=== PATIENT | female | born 1990 | race Caucasian/White ===

== ENCOUNTER 2022-03-16 08:30 | Day surgery (SDC) | payer OTHER ==
[~2022-03-16] VITALS: Ht 154.9 cm; Wt 65.4 kg
[2022-03-16] MEDS ORDERED: Budeprion Xl300 MG PO (09:04)
[2022-03-16] MEDS ORDERED: Naltrexone HCl50 MG PO (09:04)
--- NOTE | 2022-03-16 09:57 | NUR ---
03/16/22 0957 Aicha Coleman 1ST IV ATTEMPT TO L HAND UNSUCCESSFUL, INFILTRATED. 2ND IV ATTEMPT TO L HAND ALSO UNSUCCESSFUL, BUT DID NOT INFILTRATE. 3RD ATTEMPT TO R HAND WAS SUCCESSFUL.
--- NOTE | 2022-03-16 10:49 | NUR ---
03/16/22 1049 Meena Parekh ARMS TUCKED, PILLOW UNDER KNEES, GEL UNDER HEELS, HEAD ON DONUT, HEAD TAPED BY DR VARGHESE FOR POSITIONING.
--- NOTE | 2022-03-16 15:12 | NUR ---
03/16/22 1512 Celeste De La O PT C/O NAUSEA. ZOFRAN 4MG IV X1 ADMINISTERED NOW. PT ALSO NEEDED TO URINATE AND WAS ABLE TO VOID USING BEDPAN. STILL C/O 11/29 PAIN IN EAR.
--- NOTE | 2022-03-16 15:54 | NUR ---
03/16/22 1554 Celeste De La O PT C/O NEED TO VOID. TAKEN TO BATHROOM VIA WHEELCHAIR AND WHILE IN BATHROOM VOMITED APPROX 2ML BROWN EMESIS. PT THEN ABLE TO VOID WITHOUT DIFFICULTY. REPORTS PAIN AT 7/10.
== END 2022-03-16 16:58 | disposition home or self-care (01) ==
LOC: ORSCSDS 08:30
PROVIDERS: Otolaryngology
PROC: 0NR607Z Replacement of Left Temporal Bone with Autologous Tissue Substitute, Open Approach (ICD-10-PCS; principal; 2022-03-16 10:00)
DX: H90.12 Conductive hearing loss, unilateral, left ear, with unrestricted hearing on the contralateral side (principal); H73.892 Other specified disorders of tympanic membrane, left ear; Z87.891 Personal history of nicotine dependence; Z79.899 Other long term (current) drug therapy
CPT/HCPCS: A9270; J0171; J1100; J1885; J2250; J2370; J2405; J2704; J2765; J3010; J7120

== ENCOUNTER 2023-02-09 12:44 | Day surgery (SDC) | payer BC ==
[~2023-02-09] VITALS: Ht 154.9 cm; Wt 67.2 kg
[~2023-02-09 12:44] MED LIST: Budeprion Xl300 MG PO; Naltrexone HCl50 MG PO
--- NOTE | 2023-02-09 14:24 | NUR ---
02/09/23 1424 Celeste De La O SCOPOLAMINE PATCH PLACED BEHIND LEFT EAR PER ORDER FROM DR VARGAS. PATIENT INSTRUCTED ON IMPORTANCE OF HANDWASHING AFTER TOUCHING PATCH AND REMOVAL BY 72 HOURS AFTER PLACEMENT.
--- NOTE | 2023-02-09 14:44 | NUR ---
02/09/23 1444 Tavia Luong ROPIVACAINE 0.5% 10 MLS MIXED & VERIFIED W/ EPI 0.05 ML (1MG/ML), PER ORDER, TO MAKE ROPIVACAINE 0.5% 1:200,000 FOR INJECTION AT OPSITE BY DR GUNN.
--- NOTE | 2023-02-09 16:14 | NUR ---
02/09/23 1614 ROYA GARCIA SCOPOLOMINE PATH BEHIND LEFT EAR DUE TO FIRST ONE IN PREOP BEING DAMAGED AND NOT ON PT. ORDERS PER DR VARGAS AT BEDSIDE
[2023-02-09 16:50] VITALS: BP 136/86
--- NOTE | 2023-02-09 16:54 | NUR ---
02/09/23 4167 ROYA GARCIA PT UP TO BATHROOM VOIDED URINE W/O COMPLAINT OF PAIN. MINIMAL BLOOD IN SERGIO PAD
[2023-02-23 07:22] LABS: HPV GENOTYPE 16 Not Detected; HPV GENOTYPE 18 Not Detected; HPV HIGH RISK Not Detected; HPV SOURCE Not Provided
== END 2023-02-09 15:13 | disposition home or self-care (01) ==
LOC: ORSCSDS 12:44
PROVIDERS: Obstetrics & Gynecology
PROC: 0UT74ZZ Resection of Bilateral Fallopian Tubes, Percutaneous Endoscopic Approach (ICD-10-PCS; principal; 2023-02-09 14:15)
PROC: 0UPD7HZ Removal of Contraceptive Device from Uterus and Cervix, Via Natural or Artificial Opening (ICD-10-PCS; principal; 2023-02-09 14:15)
DX: Z30.2 Encounter for sterilization (principal); Z30.432 Encounter for removal of intrauterine contraceptive device; N73.6 Female pelvic peritoneal adhesions (postinfective); N80.30 Endometriosis of pelvic peritoneum, unspecified; F17.210 Nicotine dependence, cigarettes, uncomplicated; F32.A Depression, unspecified; F41.9 Anxiety disorder, unspecified; R73.03 Prediabetes; Z79.899 Other long term (current) drug therapy
CPT/HCPCS: 87624; 88302; A9270; G0123; J0171; J0330; J1100; J1885; J2250; J2405; J2795; J3010

== ENCOUNTER 2023-04-14 23:32 | Emergency (ER) | payer BC ==
[~2023-04-14] VITALS: Ht 154.9 cm; Wt 68.0 kg
[2023-04-14 23:57] VITALS: BP 131/95
[2023-04-15] MEDS ORDERED: Ondansetron HCl 2 MG / ML 2ML Vial IV ONE (00:05)
[2023-04-15 00:51] LABS: Source, Urine Clean Catch
[2023-04-15 00:53] LABS: Bilirubin, Urine Neg (Neg); Blood, Urine 5+ (Neg); Glucose Qualitative, Urine Neg (Neg); Ketones, Urine Neg (Neg); Leukocyte Esterase, Urine Neg (Neg); Nitrite, Urine Neg (Neg); Protein, Urine 1+ (Neg); Urobilinogen, Urine NORM (Normal)
[2023-04-15 01:00] LABS: Appearance, Urine Hazy (Clear); Color, Urine Yellow (P-Yellow)
[2023-04-15 01:01] LABS: White Blood Cells, Urine 0-2 /hpf (0-5)
[2023-04-15 01:02] LABS: Amorphous Light (0-Heavy); Bacteria Few /hpf; Mucus Light (0-Heavy); Red Blood Cells, Urine TNTC /hpf (0-2); Squamous Epithelial Cells Few /hpf (Few)
[2023-04-15 01:18] LABS: BASOPHILS ABSOLUTE AUTO 0.07 K/mm3 (0.00-0.23); BASOPHILS PERCENT AUTO 1 % (0-2); EOSINOPHILS ABSOLUTE AUTO 0.24 K/mm3 (0.00-0.68); EOSINOPHILS PERCENT AUTO 2 % (0-6); Hematocrit 35.7 % (33.0-51.0); Hemoglobin 12.2 g/dL (11.5-16.0); IMMATURE GRAN ABSOLUTE AUTO 0.04 K/mm3 (0.00-0.10); IMMATURE GRAN PERCENT AUTO 0 % (0-1); LYMPHOCYTES ABSOLUTE AUTO 2.35 K/mm3 (0.84-5.20); LYMPHOCYTES PERCENT AUTO 20 % (21-46); MONOCYTES ABSOLUTE AUTO 0.97 K/mm3 (0.16-1.47); MONOCYTES PERCENT AUTO 8 % (4-13); Mean Corpuscular HGB 30.6 pg (26.0-34.0); Mean Corpuscular HGB Conc 34.2 g/dL (31.5-36.5); Mean Corpuscular Volume 90 fL (80-100); Mean Platelet Volume 9.4 fL (9.1-12.4); NEUTROPHILS ABSOLUTE AUTO 7.86 K/mm3 (1.96-9.15); NEUTROPHILS PERCENT AUTO 68 % (41-73); Platelet Count 363 K/mm3 (150-400); RDW Standard Deviation 39.3 fL (35.1-46.3); Red Blood Cell Count 3.99 M/mm3 (3.80-5.20); White Blood Cell Count 11.53 K/mm3 (4.00-11.30)
[2023-04-15 01:39] LABS: Albumin, Blood 3.9 g/dL (3.4-5.0); Bilirubin, Total 0.2 mg/dL (0.1-1.0); Bun/Creatinine Ratio 37.2 (12.0-20.0); Calcium, Blood 9.2 mg/dL (8.5-10.1); Creatinine, Blood 0.65 mg/dL (0.40-1.00); Globulin, Blood 3.8 g/dL (2.2-4.0); Potassium, Blood 4.2 mmol/L (3.5-5.5); Total Protein, Blood 7.7 g/dL (6.4-8.2)
[2023-04-15] MEDS ORDERED: NS 1,000 ML IV SCH (02:25)
[2023-04-15] MEDS ORDERED: Ketorolac Tromethamine 30mg Vial IV ONE (02:25)
== END 2023-04-15 05:59 | disposition home or self-care (01) ==
LOC: ER 23:32
PROVIDERS: Student in an Organized Health Care Education/Training Program
DX: N20.1 Calculus of ureter (principal); I70.8 Atherosclerosis of other arteries; Z79.899 Other long term (current) drug therapy
CPT/HCPCS: 74177; 80053; 81001; 81025; 83690; 85025; 96374; 99284; J1885; J7030; Q9967

== ENCOUNTER 2024-10-01 10:36 | Emergency (ER) | payer OTHER ==
[~2024-10-01] VITALS: Ht 152.4 cm; Wt 72.6 kg
[~2024-10-01 10:36] MED LIST changes: +IBUP800 PO
[2024-10-01 10:46] VITALS: BP 140/106
[2024-10-01] MEDS ORDERED: TOPI50 PO (14:06)
[2024-10-01] MEDS ORDERED: BUPROPION XL150 M1 PO (14:07)
== END 2024-10-01 14:08 | disposition home or self-care (01) ==
LOC: ER 10:36
DX: T50.901A Poisoning by unspecified drugs, medicaments and biological substances, accidental (unintentional), initial encounter (principal); R41.0 Disorientation, unspecified; Z79.899 Other long term (current) drug therapy
CPT/HCPCS: 93005; 93010; 99284-25

== ENCOUNTER → 2025-01-21 | Outpatient (CLI) | payer OTHER ==
[~2025-01-21] MED LIST changes: +BUPROPION XL150 M1 PO; +TOPI50 PO
[2025-01-21 18:54] LABS: BASOPHILS ABSOLUTE AUTO 0.08 K/mm3 (0.00-0.23); BASOPHILS PERCENT AUTO 1 % (0-2); EOSINOPHILS ABSOLUTE AUTO 0.21 K/mm3 (0.00-0.68); EOSINOPHILS PERCENT AUTO 2 % (0-6); Hematocrit 39.4 % (33.0-51.0); Hemoglobin 13.3 g/dL (11.5-16.0); IMMATURE GRAN ABSOLUTE AUTO 0.04 K/mm3 (0.00-0.10); IMMATURE GRAN PERCENT AUTO 0 % (0-1); LYMPHOCYTES ABSOLUTE AUTO 3.46 K/mm3 (0.84-5.20); LYMPHOCYTES PERCENT AUTO 31 % (21-46); MONOCYTES ABSOLUTE AUTO 0.81 K/mm3 (0.16-1.47); MONOCYTES PERCENT AUTO 7 % (4-13); Mean Corpuscular HGB Conc 33.8 g/dL (31.5-36.5); Mean Corpuscular Volume 90 fL (80-100); NEUTROPHILS ABSOLUTE AUTO 6.57 K/mm3 (1.96-9.15); NEUTROPHILS PERCENT AUTO 59 % (41-73); NRBC ABSOLUTE 0.00 K/mm3 (0.00-0.02); NRBC Auto 0.0 /100 WBC (0.0-0.2); Platelet Count 447 K/mm3 (150-400); RDW Coefficient Variation 12.2 % (11.7-14.2); RDW Standard Deviation 40.2 fL (35.1-46.3)
[2025-01-21 19:11] LABS: Alanine Aminotransfer (ALT/SGP 26.0 U/L (12-78); Albumin, Blood 4.1 g/dL (3.4-5.0); Albumin/Globulin Ratio 1.0 (0.8-1.8); Anion Gap 16.0 mmol/L (3-11); Aspartate Aminotrans (AST/SGOT 16.0 U/L (12-37); Bilirubin, Total 0.2 mg/dL (0.1-1.0); Blood Urea Nitrogen 15.0 mg/dL (8-24); CO2, Blood 23.0 mmol/L (21-32); Calcium, Blood 9.2 mg/dL (8.5-10.1); Chloride, Blood 108.0 mmol/L (98-108); Creatinine, Blood 0.9 mg/dL (0.40-1.00); Globulin, Blood 4.0 g/dL (2.2-4.0); Glucose, Blood 95.0 mg/dL (70-99); Potassium, Blood 4.2 mmol/L (3.5-5.5); Sodium, Blood 143.0 mmol/L (136-145); Total Protein, Blood 8.1 g/dL (6.4-8.2)
== END | disposition home or self-care (01) ==
LOC: LAB SHORT 18:50 → LAB 18:50
PROVIDERS: Physician Assistant Medical
DX: R10.9 Unspecified abdominal pain (principal)
CPT/HCPCS: 80053; 85025